=== PATIENT | female | born 1955 | race Caucasian/White ===

== ENCOUNTER → 2018-01-31 09:29 | Outpatient (CLI) | payer OTHER, SELFPAY ==
[2018-01-31 12:39] LABS: Cholesterol 211 mg/dL (200); High Density Lipoprotein 58 mg/dL; Thyroid Stim Hormone (TSH) 4.54 uIU/mL (0.358-3.74); Triglycerides 160 mg/dL; Very Low Density Lipoprotein 32 mg/dL (5-40)
== END ==
PROVIDERS: Family Provider Family Medicine; PCP Family Medicine; Visit Provider Family Medicine
DX: R53.83 Other fatigue (principal)
CPT/HCPCS: 36415; 80061; 84439; 84443

== ENCOUNTER → 2018-03-10 13:10 | Outpatient (CLI) | payer OTHER, SELFPAY | PROVIDERS: Family Provider Family Medicine; PCP Family Medicine; Visit Provider Family Medicine | DX: I65.29 Occlusion and stenosis of unspecified carotid artery (principal) | CPT/HCPCS: 93880 ==

== ENCOUNTER → 2018-03-17 08:52 | Outpatient (CLI) | payer OTHER, SELFPAY | PROVIDERS: Family Provider Family Medicine; PCP Family Medicine; Visit Provider Surgery | DX: E04.1 Nontoxic single thyroid nodule (principal) | CPT/HCPCS: 76536 ==

== ENCOUNTER → 2018-05-05 09:46 | Outpatient (CLI) | payer OTHER, SELFPAY ==
[2018-05-05 12:37] LABS: Free T3 2.8 pg/mL (2.18-3.98); T4 Total, Thyroxin 9.7 ug/dL (4.8-13.9); Thyroid Stim Hormone (TSH) 3.09 uIU/mL (0.358-3.74)
[2018-05-05 12:45] LABS: Rubella IgG 151.4 IU/mL
[2018-05-06 15:29] LABS: Rubeola IgG Ab > 300.0 AU/mL (Immune >29.9)
== END ==
PROVIDERS: Family Provider Family Medicine; PCP Family Medicine; Visit Provider Family Medicine
DX: R79.89 Other specified abnormal findings of blood chemistry (principal); Z23 Encounter for immunization
CPT/HCPCS: 36415; 84436; 84443; 84481; 86735; 86762; 86765

== ENCOUNTER → 2018-12-13 16:32 | Outpatient (CLI) | payer MEDICARE, SELFPAY ==
--- NOTE | 2018-12-13 16:43 | RAD_ITS ---
STUDY: X-RAY - LEFT KNEE REASON FOR EXAM: Female, 63 years old. Knee pain TECHNIQUE: 4 view(s) of the knee. COMPARISON: None. FINDINGS: There is no evidence of fracture or dislocation. Mild tricompartmental degenerative changes are present. Chondrocalcinosis is present. A suprapatellar effusion is present. Hypertrophic changes are present at the superior patella. There is a horizontal lucency through the medial tibial spine. There are no radiodense foreign bodies. RAD/Knee 4 or More Views IMPRESSION: No displaced fracture or dislocation. Degenerative changes described above. Horizontal lucency through the medial tibial spine may represent chronic tibial spine fracture of indeterminate age, or related to chronic degenerative change. Electronically Signed: Delonte Oakley, at 17:06 EDT Tel , Service support ,
--- NOTE | 2018-12-13 16:44 | RAD_ITS ---
STUDY: X-RAY - RIGHT KNEE REASON FOR EXAM: Female, 63 years old. Knee pain TECHNIQUE: 4 view(s) of the knee. COMPARISON: None. FINDINGS: There is no evidence of fracture or dislocation. Mild tricompartmental degenerative changes are present. Chondrocalcinosis is present. There is a small suprapatellar effusion. There are no radiodense foreign bodies. RAD/Knee 4 or More Views IMPRESSION: No fracture or dislocation. Degenerative changes described above. Electronically Signed: Delonte Oakley, at 17:19 EDT Tel , Service support ,
== END ==
PROVIDERS: Family Provider Family Medicine; PCP Family Medicine; Referring Provider Family Medicine; Visit Provider Family Medicine
DX: M25.569 Pain in unspecified knee (principal)
CPT/HCPCS: 73564

== ENCOUNTER → 2018-12-29 17:35 | Outpatient (CLI) | payer MEDICARE, SELFPAY ==
[2018-12-21 14:23] VITALS: BMI 24.3
--- NOTE | 2018-12-29 17:37 | MRI_ITS ---
HISTORY:Left knee popping out of place c/o pain laterally x 3 weeks, no known injury MRI EXAMINATION OF THELeft KNEE COMPARISON: Right aggressive left knee obtained on December 13, 2018 TECHNIQUE: Coronal proton density, fat-suppressed T2 and thin section ACL coronal T2, sagittal proton density, fat-suppressed T2 and axial fat-suppressed T2-weighted images # of images including paperwork:192 FINDINGS: Bones: There is no evidence of acute fracture or dislocation. No significant marrow edema. Ligaments and tendons: Anterior and posterior cruciate ligaments are intact. The iliotibial band, lateral collateral ligament, biceps femoris tendon, medial collateral ligament, and popliteus tendon are intact Extensor mechanism: The quadriceps tendon and the patellar tendon are intact. There is not the fight at the insertion of the quadriceps tendon on the patella. Medial and lateral retinaculum are intact. Knee joint: Small joint effusion. There is minimal edema that is seen at the suprapatellar fat pad. There is also a small popliteal cyst as well as fluid within the semimembranosus tibial collateral ligament bursa Medial compartment: No evidence of a meniscal tear. There is near full-thickness fissuring seen at the weightbearing portion medial femoral condyle seen and coronal image 13 series 6 with thinning of the lateral aspect of the medial femoral condylar articular cartilage Lateral compartment: There is a horizontal tear involving the middle one third of the lateral meniscus. This extends to the inferior articular surface poorly visualized on image 12 series 6. There is also seen on image 13 series 6. No full-thickness articular cartilage loss is seen at the lateral compartment and the knee. There is however a corticated loose body that is seen adjacent to the anterior lateral femoral condyle seen best on image 17 series 6. This measures approximately 5.8 mm. This is also seen on image 9 series 7. Also on image 17 series 5. Patellofemoral articulation: There is minimal subchondral edema seen at the far lateral patella central portion. Thinning of the articular cartilage of the patella but no full-thickness loss. No articular cartilage loss in the trochlea MRI/Lower Ext Joint Only (Routine) IMPRESSION: The anterior and posterior cruciate limits her intact There is a small loose body seen at the anterior lateral joint space medial aspect Edema of the suprapatellar fat pad Minimal edema seen at the far lateral central patella Thinning of the patellar tickler cartilage but no full-thickness loss There is fissuring the weightbearing portion of the medial femoral condyle Horizontal tear of the middle one third of the lateral meniscus Popliteal cyst as well as fluid within the semimembranosus tibial collateral ligament bursa Small joint effusion at 2154 Reported and signed by: Shania Mooney DO Electronically Signed: Shania Mooney DO at 21:53 EDT Tel , Service support ,
== END ==
PROVIDERS: Family Provider Family Medicine; PCP Family Medicine; Referring Provider Orthopaedic Surgery; Visit Provider Orthopaedic Surgery
DX: M17.12 Unilateral primary osteoarthritis, left knee (principal); M25.562 Pain in left knee
CPT/HCPCS: 73721

== ENCOUNTER → 2019-01-21 09:08 | Outpatient (CLI) | payer MEDICARE, SELFPAY ==
[2019-01-03 10:09] VITALS: BMI 24.3
[2019-01-21 10:54] LABS: Anion Gap 6 (5-15); BUN 27 mg/dL (7-18); Calcium,Total 8.5 mg/dL (8.5-10.1); Chloride 107 mmol/L (98-107); Cholesterol 237 mg/dL (200); Creatinine, Serum 0.84 mg/dL (0.55-1.02); EST Glomerular Filtration Rate 72 mL/min (>60); Est Glom Filt Rate - Afr Amer 87 mL/min (>60); Glucose 90 mg/dL (74-106); High Density Lipoprotein 61 mg/dL; Microalbumin,Random Urine 9.5 mg/L (NO RANGE EST.); Microalbumin:Creatinine Ratio 5.7 mg/g CRE (<30 mg/g CRE); Potassium 4.2 mmol/L (3.5-5.1); Sodium Level 143 mmol/L (136-145); Triglycerides 154 mg/dL; Very Low Density Lipoprotein 31 mg/dL (5-40)
== END ==
PROVIDERS: Family Provider Family Medicine; PCP Family Medicine; Referring Provider Family Medicine; Visit Provider Family Medicine
DX: I10 Essential (primary) hypertension (principal)
CPT/HCPCS: 36415; 80048; 80061; 82043; 82570; 84443

== ENCOUNTER 2019-02-01 09:35 | Day surgery (SDC) | payer MEDICARE, SELFPAY ==
[2019-01-03 10:09] VITALS: BMI 24.3
--- NOTE | 2019-01-03 12:54 | HP_ITS ---
I have re-examined the patient. There are no clinical changes since date of exam. Intake Vital Signs 01/03/19 Body Mass Index (BMI) 24.3 01/02/19 Body Mass Index (BMI) 24.3 Intake Visit Reasons: L. KNEE Chief Complaint: Diverticulitis Allergies No Known Allergies Allergy (Verified 03/18/18 14:27) [facility] Medical History (Updated 03/18/18 @ 14:34 by Jacob Maya MD) Multiple thyroid nodules (Acute) Dehydration (Acute) HTN (hypertension) (Chronic) Hyponatremia (Acute) Diverticulitis (Acute) Surgical History (Updated 03/18/18 @ 14:19 by Meaghan Pedraza) S/P eye surgery (Acute) H/O foot surgery (Acute) S/P breast biopsy (Acute) S/P tonsillectomy (Acute) Family History (Updated 03/18/18 @ 14:21 by Meaghan Pedraza) Mother Hypertension CAD (coronary artery disease) Thyroid disorder Father Heart disease Hypertension Social History (Updated 01/03/19 @ 12:54 by TIFFANY Gallardo) Smoking Status: Current every day smoker alcohol intake: current alcohol intake frequency: 0-2 drinks per day HPI L. KNEE: Surgical H&P: Yes Details: Parts of this documentation were recorded by a scribe, this documentation accurately reflects the service provided and the decisions made by me, TIFFANY Gallardo 01/03/19 1007. MATT TORRES is a 63 year old F here today for F/U after having Left knee MRI completed. Patient states her pain has not changed. Does have an increase in stiffness. Patient is having lateral sided knee pain. Patient denies any injections of the knee. ROS Const Reports system reviewed and no additional complaints, except as docu Eyes Reports system reviewed and no additional complaints, except as docu ENT Reports system reviewed and no additional complaints, except as docu Card Reports system reviewed and no additional complaints, except as docu Resp Reports system reviewed and no additional complaints, except as docu GI Reports system reviewed and no additional complaints, except as docu Musc Reports system reviewed and no additional complaints, except as docu, Reports as per HPI Skin/Breast Reports system reviewed and no additional complaints, except as docu Neuro Yes system reviewed and no additional complaints, except as docu Psych Reports system reviewed and no additional complaints, except as docu Endo Reports system reviewed and no additional complaints, except as docu Zak/Lymph Reports system reviewed and no additional complaints, except as docu Aller/Immun Reports system reviewed and no additional complaints, except as docu Ortho Exam Left Knee Skin/Wound: No ecchymosis, No erythema, No swelling Contralateral Normal: Yes Homans Sign: No Knee ROM: Yes ROM-Extension -20 to 0, Yes ROM-Flexion 0-140 Examination: Yes Lat jt line tenderness, Yes Brent's Test KNEE: Patient has no acute abnormalities on inspection. She has no generalized or localized swelling. She has no ecchymosis/bruising, erythema, or other skin changes. Assessment & Plan Problems 1. Acute lateral meniscus tear of left knee, initial encounter S83.282A Plan Patient presents to the office today to review MRI of left knee. Patient has continued to have locking of the knee and occasional instability/giving out. She does not have any swelling or other skin changes. We did review patient's MRI findings which indicates she does have a horizontal tear of the lateral meniscus. We discussed that this very well could be shifting/even flipping causing her to have a locking sensation of the knee. At this time we did discuss options for the knee which include doing nothing, injections, physical therapy, and/or surgical intervention. Patient is not keen on having injections and would really like to have this repaired due to the symptoms she is having. 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 I therefore reviewed this with our surgeon in office today Dr. Max who we did see the patient and answer any questions regarding the MRI and surgical procedure. Procedure was explained to patient at the same time we also explained cannot have an exact plan until we directly visualize the meniscus and the tear involved. We explained risks and benefits of the procedure as well as the other options patient is aware and understands these risks. Consent was signed in office today. Patient was given surgical cleansed to use the night before the morning of. She will be contacted by surgery for preanesthesia testing and will be notified the day before her surgery of her time. Patient has no other questions at this time. She can notify the office if any arise. This note was generated with [employer] software. It may contain incorrect words, spelling, and punctuation that were not noted in checking the note before signing. Coding Level of Care Code Off vis,est,level 2 Diagnoses Acute lateral meniscus tear of left knee, initial encounter S83.282A ??Encounter type: initial encounter 01/03/19 1254 <Electronically signed by Felipe ALLEN> Date _ Felipe ALLEN
[2019-02-01 09:55] VITALS: BP 148/70; PULSE 60; RESP 16; TEMP 36.7; O2SAT 100; BMI 24.8
[2019-02-01] MEDS: Cefazolin 2 GM in 0.9% Normal Saline 100 ML IV (10:33)
--- NOTE | 2019-02-01 10:39 | PCM.DC.ORTHO ---
Discharge Diet: No Restrictions - remove dressings in 4 days and apply bandaids to incision sites, may get incision wet at that time; wbat left leg, call with concerns, follow up in 2 weeks, will start PT in 2 weeks Discharge Activity: May Not Drive May shower in (days): 1 Ice area for (Minutes): 20 - Every hour while awake. Weight Bearing Status: Weight bearing as tolerated Keep extremity elevated above heart level: Operative Extremity Call your doctor if your incision/area has: Continuous Slow Oozing, Sudden Increased Bleeding, Increased Pain/ Swelling, Increased Redness, Foul Smelling Discharge Call your doctor if you observe: Fever of 101 or Higher, Coldness, Increased Pain, Numbness or Tingling, Change in Color, Calf discomfort Allergies/Adverse Reactions: Allergies No Known Allergies Allergy (Verified 01/31/19 13:21) Medications to take at Discharge Metoprolol(XL)Succ [Toprol Xl (Beta Mervat)] 25 mg PO DAILY 01/11/15 amlodipine 5 mg tablet 5 mg PO DAILY 03/18/18 multivitamin tablet 1 tab PO DAILY 03/18/18 timolol 0.5 % eye drops 1 drp OPHTHALMIC BID 03/18/18 Calcium Carbonate [Calcium] 600 mg PO DAILY 01/31/19 Levothyroxine Sodium [Synthroid] 50 mcg PO DAILY 01/31/19 Hydrocodone Bitart/Apap 5-325 [[place] 5MG-325MG] 1 - 2 tablet PO Q6H PRN PRN 5 Days #40 tablet 02/01/19 The following prescriptions were given: Hydrocodone Bitart/Apap 5-325 [[place] 5MG-325MG] 1 - 2 tablet PO Q6H PRN PRN 5 Days #40 tablet PRN Reason: Pain Transmission Status: Sent to [facility] Primary Care Physician: Bandar Chilel MD [Primary Care Provider] - Test Results: Test results from this visit will be discussed in further detail at your follow-up appointment, if applicable. Please Follow Up With: Lolis Max, - [phone]
--- NOTE | 2019-02-01 10:40 | PCM.OPRPT ---
Report of Operation Date of Procedure: 02/01/19 Pre-Operative Diagnosis: left knee oa, medial and lateral men tears Post-Operative Diagnosis: same Surgery/Procedure Performed:: salk, pmm, plm fur nailer: Felipe Espana Type of Anesthesia:: General Anesthesiologist: Nils Mayfield Drains: tt-28min Fluids Replaced: 600ml lr Description of Procedure: Preop note Patient is a 63-year-old female with continued left knee pain after conservative treatment failed MRI confirms medial lateral meniscus tears as well as arthritis the locking and instability of the knee is with most bothersome the patient. Risk benefits and alternatives surgery discussed the patient. Risks including but not limited to blood loss blood, blood clot, infection, neurovascular injury, failure procedure, loss of life and loss of limb. Risk for increasing arthritis. Patient is aware and would like to proceed with left knee arthroscopy repair as indicated. Please note the patient did not want anything repair today as she does not want to be on crutches for 6 weeks and we will do a meniscectomy. Operative note Patient seen and examined preop holding area. Left knee was marked. Patient brought to the operating placed supine on the operating table. Sign, anesthesia, antibiotics were administered. The left leg was prepped and draped usual sterile fashion with a tourniquet around her upper thigh. All bony promises well-padded SCDs placed on her contralateral limb. We then marked at her port placement for anterolateral and anteromedial portal placement. We then elevated the leg assembly of the leg and triggers rates her pressure 250 torr. We then created an anterior lateral portal under direct visualization after timeout was performed. Began with the patellofemoral joint which was intact there is some thinning but there is no unstable pieces. Then moved to the medial joint line there is a we then created a medial portal under direct visualization. There is a 1 x 0.6 cm loose body in the anterior lateral aspect of the joint just lateral to the ACL insertion. This was removed with a hemostat please note that we did enlarge the incision just slightly to remove it as it was about a centimeter large to remove it and patient was taken of the loose body was sent for pathology for further evaluation. Probed the medial meniscus which was unstable at the root. We then resected the unstable root tear with a combination of shaver and a basket. Please note that the root itself was intact it is more of the superior surface of the root. She also has some looks like an deposition of either steroid injections or pseudogout calcium deposits within the meniscus as well at the posterior horn specifically. We then susan did she also had also a radial body tear at the mid side of the mid body of the medial meniscus. This was also debrided back gently with a basket shaver to stable rim probe was then reinserted to ensure the stable rim remaining and there was a stable remnant of the medial meniscus. She had grade 3 changes about 2 x 3 of the medial femoral condyle and thinning of the medial tibial plateau as well. The ACL and PCL are present present within the notch on initial inspection however we want to figure for we are able to see that the ACL was was loose and there is a piece that was detached from the mid femoral attachment. This was gently shaved with a shaver. The lateral meniscus is also unstable there is a mid body tear that extended to the radial component. This was resected back with accommodation of a basket and shaver and then a probe was reinserted to ensure that we had good stable remnant lateral meniscus which we did have. We resected as little as possible to ensure that she has much cushion as possible she also had grade 3 irritated the lateral tibial plateau and lateral femoral condyle. We then irrigated the knee with copious amounts of sterile saline. The portals were closed with interrupted nylon stitches sterile dressings were applied tourniquet was deflated for a total working time 20 minutes. Patient tolerated procedure well no comp occasions transferred to recovery room in stable condition. Postoperative Weight-bear as tolerated left leg Follow-up in 2 weeks Pharmacy has prescriptions as Call with increased pain numbness tingling further issues arises We will discuss pictures in the office in 2 weeks This note was generated with [employer] software. It may contain incorrect words, spelling, and punctuation that were not noted in checking the note before signing.
[2019-02-01] MEDS: Epinephrine (1 mg/ml) 1 MG/ML VIAL (11:25)
[2019-02-01] MEDS: Mupirocin Ointment 22gm Tube 1 APPLIC (11:25)
[2019-02-01] MEDS: Bupiv/Epi 0.25% 30 ML Vial (11:26)
--- NOTE | 2019-02-01 11:35 | TISS_PTH ---
PATIENT: MATT TORRES LOC: [facility] [place] U#:[id number] AGE/SX: 63/F ROOM: RE02/01/[address]: Dr. Lolis Max DO : 1955 BED: DIS: 02/01/2019 SPEC #: [id number] RECD: 02/01/19 13:34 STATUS: CAROLINE FRANCISCO #: [id number] SONI: 02/01/19 11:[address]: Lolis Max DEPT: SURGICAL PATHOLOGY RECD BY: Justin Gutierrez ENTERED: 02/01/19 13:46 SP TYPE: Tissue Bx MARITA DR: Dr. Bandar Chilel MD Tissues: Left knee Procedures: Surgery Specimen Level IV HEADER OPERATION: Arthroscopy, knee, lateral meniscus meniscectomy PRE-OP DIAGNOSIS: Acute lateral meniscus tear of left knee TISSUE SUBMITTED: Left knee loose body MICROSCOPIC DIAGNOSIS Loose body of left knee, removal: Unremarkable fragment of [place] cartilaginous tissue consistent with loose body. AM:priyanka 02/06/19 MICROSCOPIC DESCRIPTION Slides are reviewed. GROSS DESCRIPTION Received is one container designated left knee loose body. The specimen consists of a piece of bone measuring 1 x 0.7 x 0.5 cm. The entire specimen is submitted in one cassette after decalcification. / MÓNICA:priyanka 02/01/19 TC:5 CPT: 97606, [id number]
[2019-02-01 11:45] VITALS: BP 124/69; BP 148/70; PULSE 57; RESP 18; TEMP 36.2; O2SAT 94
[2019-02-01 12:00] VITALS: BP 136/72; BP 148/70; PULSE 60; RESP 16; O2SAT 100
[2019-02-01 12:15] VITALS: BP 127/71; BP 148/70; PULSE 58; RESP 16; O2SAT 95
[2019-02-01 12:30] VITALS: BP 137/82; BP 148/70; PULSE 63; RESP 16; TEMP 36.1; O2SAT 98
[2019-02-01 13:23] VITALS: BP 123/67; BP 148/70; PULSE 56; RESP 16; TEMP 36.2; O2SAT 96
== END 2019-02-01 13:24 | disposition home or self-care (01) ==
LOC: SDC 09:40 → AC 09:42
PROVIDERS: Family Provider Family Medicine; PCP Family Medicine; Referring Provider Orthopaedic Surgery; Visit Provider Orthopaedic Surgery
PROC: (CPT 29870; principal; 2019-02-01 11:15)
DX: M23.42 Loose body in knee, left knee (principal); I10 Essential (primary) hypertension; M17.12 Unilateral primary osteoarthritis, left knee; E03.9 Hypothyroidism, unspecified; F17.200 Nicotine dependence, unspecified, uncomplicated
CPT/HCPCS: 01400; 29880; 88305; J7120; J2405

== ENCOUNTER → 2019-02-16 09:51 | Outpatient (CLI) | payer MEDICARE, OTHER, SELFPAY ==
[2019-02-16 08:07] VITALS: BMI 24.8
--- NOTE | 2019-02-16 09:53 | VDLE_ITS ---
Reason For Study: Pain RIGHT LEFT CFV is compressible, spontaneous, phasic, GSV is normal. competent and demonstrates normal CFV is compressible, spontaneous, phasic, augmentation. competent, and demonstrates normal Procedure augmentation. Exam performed in department. FV is compressible, spontaneous, phasic, A preliminary report was called and/or faxed competent and demonstrates normal to Winter. augmentation. POP V is compressible, spontaneous, phasic, competent and demonstrates normal augmentation. T/P Trunk is compressible. PTV is compressible. LT PerV is compressible. Interpretation Summary There is no evidence of left lower extremity deep vein thrombosis. Left great saphenous vein appears patent and compressible segmentally. Patent and compressible right common femoral vein Ordering Physician: Lolis Max Referring Physician: Bandar Chilel MD Performed By: Jodee Avila RVT
== END ==
PROVIDERS: Family Provider Family Medicine; PCP Family Medicine; Referring Provider Orthopaedic Surgery; Visit Provider Orthopaedic Surgery
DX: M79.662 Pain in left lower leg (principal); Z98.890 Other specified postprocedural states
CPT/HCPCS: 93971

== ENCOUNTER → 2019-04-28 10:02 | Outpatient (CLI) | payer MEDICARE, BC, SELFPAY ==
[2019-02-16 08:07] VITALS: BMI 24.8
[2019-03-17 09:28] VITALS: BMI 24.8
--- NOTE | 2019-04-28 10:09 | US_ITS ---
HISTORY: NODULES COMPARISON: 03/17/2018 TECHNIQUE: Grayscale and color Doppler sonography of the thyroid gland. FINDINGS: RIGHT LOBE: 4.7 x 1.3 x 1.6 cm LEFT LOBE: 4.3 x 1.3 x 1.4 cm ISTHMUS: 2 mm Hypoechoic, smoothly marginated 5 x 3 x 4 mm right thyroid lobe nodule, not definitely seen previously. Small right thyroid lobe nodule on the previous study no longer evident. Hypoechoic 8 x 7 x 6 mm smoothly marginated left thyroid lobe nodule, previously 8 x 7 x 6 mm. 3 x 4 mm left thyroid lobe cyst appears unchanged. Predominantly hyperechoic 8 x 5 x 6 mm left thyroid lobe nodule, previously 9 x 5 x 7 mm. Heterogeneously hypoechoic 6 x 6 x 6 mm left thyroid lobe nodule, previously 7 x 4 x 5 mm. US/Thyroid IMPRESSION: 1. New small right thyroid lobe nodule measuring 5 mm. 2. No significant interval change in left thyroid lobe nodules. at 2327 Reported and signed by: Marlee Shaffer MD Electronically Signed: Marlee Shaffer MD at 23:27 EDT Tel , Service support ,
== END ==
PROVIDERS: Family Provider Family Medicine; PCP Family Medicine; Referring Provider Surgery; Visit Provider Surgery
DX: E04.2 Nontoxic multinodular goiter (principal)
CPT/HCPCS: 76536

== ENCOUNTER → 2019-08-03 08:12 | Outpatient (CLI) | payer MEDICARE, BC, SELFPAY ==
[2019-05-12 13:03] VITALS: BMI 24.8
[2019-08-03 10:13] LABS: Cholesterol 219 mg/dL (200); Free T3 2.9 pg/mL (2.18-3.98); High Density Lipoprotein 61 mg/dL; Thyroid Stim Hormone (TSH) 2.78 uIU/mL (0.358-3.74); Triglycerides 112 mg/dL; Very Low Density Lipoprotein 22 mg/dL (5-40)
== END ==
LOC: LAB.FUTURE 08:15 → MTLAB 08:21
PROVIDERS: Family Provider Family Medicine; PCP Family Medicine; Referring Provider Family Medicine; Visit Provider Family Medicine
DX: E03.9 Hypothyroidism, unspecified (principal); E78.00 Pure hypercholesterolemia, unspecified
CPT/HCPCS: 36415; 80061; 84439; 84443; 84481

== ENCOUNTER → 2019-11-24 09:13 | Outpatient (CLI) | payer MEDICARE, BC, SELFPAY ==
[2019-11-16 10:04] VITALS: BMI 24.8
--- NOTE | 2019-11-24 09:14 | RAD_ITS ---
STUDY: X-RAY - RIGHT KNEE REASON FOR EXAM: Pain. TECHNIQUE: 4 view(s) of the knee. COMPARISON: Radiographs 12/13/2018. FINDINGS: Normal visualized distal femur. Normal visualized proximal tibia and fibula. Normal proximal tibiofibular articulation. Normal medial femorotibial compartment. There are small marginal osteophytes and mild joint space narrowing of the lateral femorotibial compartment similar to the prior study. Normal patellofemoral articulation. There is chondrocalcinosis. There is patellar enthesopathy. RAD/Knee 4 or More Views IMPRESSION: Mild arthrosis of the lateral femorotibial compartment. Chondrocalcinosis. Electronically Signed: Yeison Tellez MD at 9:37 EDT Tel , Service support ,
== END ==
PROVIDERS: PCP Family Medicine; Referring Provider Orthopaedic Surgery; Visit Provider Orthopaedic Surgery
DX: S76.311A Strain of muscle, fascia and tendon of the posterior muscle group at thigh level, right thigh, initial encounter (principal); M70.51 Other bursitis of knee, right knee
CPT/HCPCS: 73564

== ENCOUNTER 2020-01-03 11:00 | Outpatient (RCR) | payer MEDICARE, BC, SELFPAY ==
[2019-11-16 10:04] VITALS: BMI 24.8
--- NOTE | 2019-11-27 19:25 | HP.PTEVAL_ITS ---
Patient's Visit Information MATT TORRES is a 64 year old F referred to Physical Therapy by Dr. Lolis Max DO with a diagnosis of pes bursitis Right knee pain,hamstrings strain. Date of Evaluation: 11/27/19 Physical Therapist: Haroon Haque, PT, Cert MDT, OCS - Visit Plan Frequency: 2x /Week Duration: 4 Weeks Plan: PT INTERVENTIONS FLEXABLITY IT BANND ,ROM KNEE,PRES QUADS/HAMS/HIP,STICK I TBAND. MODALITIES PRN - Subjective This 64 y/o female presents to physical therapy with right knee pain. Patient has h/o left knee arthrospic menisectomy 2019. Patient potential injuried playing [email or web address]. Patient had epsiode locked. Pain located grossly knee,occassionallly affects entire leg. Patient seen DR Rodriguez did x-rays OA.Aggravating factors stairs,squatting,elevation from chair,climbing factors ,shoveling,getting up from floor. Alleviating factors aleve.Symptoms worse with activity . Rest no pain. Denies parathesia/tingling . Patient sleeping okay at night. Patient pain affects ability to perfporm ADL'S ,housework tasks and job demnads. Patient symptoms affects QOL. SOCIAL: single. VOCATION: retired teacher - Pain Right Knee Pain Intensity (Out of 10): 5 Pain Intensity Range: 10 Comment: movement - Objective POSTURE: mild foward posture ,mild valgus. GAIT: reciprocal pattern. PALAPTION:IT BAND DISTAL. NEURO: intact. AROM: 0-120 supine knee flexion right,0-130 supine knee flexion left. MMT: quads/hams 4/5,hip flexion 4-/5,hip abd 4-/5,ankle 4/5. FLEXABLITY: hams WFL,min tight,. PROPRIOCEPTION: intact. STAIRS: alternating pain descending. + Pain with squatting - Special Tests R Knee Brent - Meniscus: Positive R Knee Shimon - ACL: Negative R Knee Anterior Drawer - ACL: Negative R Knee Posterior Drawer - PCL: Negative R Knee Posterior Sag - PCL: Negative R Knee Valgus - MCL: Negative R Knee Varus - LCL: Negative R Knee Patellar Grind - PFS: Positive - Goals Goal 1:: Patient to be Indepndant with HEP Goal Time Frame: 4-6 Weeks Goal 2:: Patient to decrease pain by 50% or > to improve function Goal Time Frame: 4-6 Weeks Goal 3:: Patient to improve right knee supine flexion 130 degrees to improve stairs Goal Time Frame: 4-6 Weeks Goal 4:: Patient to improve LFES score by 5 points to improve function and QOL. Goal Time Frame: 4-6 Weeks Goal 5:: Patient ability to perform ADLS', stairs ,and housework and return sports activity with min limitations Goal Time Frame: 4-6 Weeks - Rehabilitation Potential Physical Therapy Diagnosis: This patient strained right knee with possible playing pickle ball thus developed knee pain affects functional mobility witf functiona activlity stairs,elevation from chair ,tenderness I -Tband ,ROM Loss with pain. Rehabilitation Potential: Good - Anticipated Interventions Patient/Client Instruction: Educate patient on: Condition, Plan of Care For the Purpose of:: To decrease pain, To increase ROM, To improve muscle performance and motor function, To improve ability to perform ADL's, To increase tolerance to activity/condition/position, To improve ability of physical actions for home/community/work/leisure, To improve health of tissue, To decrease soft tissue restriction, To increase flexibility/ROM, To improve ability to perform tasks related to life management Therapeutic Exercise to Include: Strength training, Balance training, Flexibilty training, Active ROM Comment: QUADS/HAMS /HIP For the Purpose of:: To decrease pain, To increase ROM, To improve muscle performance and motor function, To improve ability to perform ADL's, To increase tolerance to activity/condition/position, To improve ability of physical actions for home/community/work/leisure, To improve health of tissue, To decrease soft tissue restriction, To increase flexibility/ROM, To improve ability to perform tasks related to life management Manual Therapy Techniques to Include: Soft tissue mobilization Comment: STICK I T BAND For the Purpose of:: To decrease pain, To increase ROM, To improve nutrient delivery to tissue, To increase oxygenation perfusion, To improve health of tissue, To decrease soft tissue restriction TENS: Yes IF ES: Yes Cryotherapy (ice pack, ice massage): Yes Thermo therapy (hot pack): Yes Ultrasound (thermal/non thermal): Yes For the Purpose of:: To decrease pain, To increase ROM, To improve nutrient delivery to tissue, To increase oxygenation perfusion, To improve health of tissue, To decrease soft tissue restriction Thank you for the opportunity to evaluate your patient. For Medicare and Medicare HMO plans, please review the plan of care and approve it. It will need to be FAXED BACK to us at [phone] for Medicare purposes. For Medicare only, by signing this I certify the plan of care. Please let me know if there are questions or concerns regarding this plan of care. Physician Signature: Date:
--- NOTE | 2020-01-03 12:00 | HP.PTDCSUM ---
It has been my pleasure to treat MATT TORRES referred by Dr. Lolis Max DO, with the diagnosis of pes bursitis Right knee pain,hamstrings strain for a total of 8 visit(s). Discharge Date: 01/03/20 Please see the following information for a summary of their discharge status. Subjective: Doing well with tx ,.ROM ,NO PAIN. Able to do stairs alteranting Right Knee Pain Intensity (Out of 10): 0 % Improvement: 90 Objective/Function: POSTURE: mild foward posture. GAIT: reciprocal pattern. STAIRS: alternating steps. AROM: 0-130 degrees. MMT: QUADS/HAMS 4/5,HIP 4/5. I T BAND TENDER Goal 1:: Patient to be Indepndant with HEP Goal Progress: Goal Met Goal 2:: Patient to decrease pain by 50% or > to improve function Goal Progress: Goal Met Goal 3:: Patient to improve right knee supine flexion 130 degrees to improve stairs Goal Progress: Goal Met Goal 4:: Patient to improve LFES score by 5 points to improve function and QOL. Goal Progress: Goal Met Goal 5:: Patient ability to perform ADLS', stairs ,and housework and return sports activity with min limitations Goal Progress: Goal Met Plan: D/C TO HEP AND GYM PROGRAM Discharge Comments: HEP AND GTM PROGRAM If there are questions or concerns regarding this patient's physical therapy, please feel free to call me at [phone]. Thank you for the referral of this patient. Sincerely, Haroon Haque, PT, Cert MDT, OCS
== END 2020-01-03 19:00 | disposition home or self-care (01) ==
LOC: PT 11:00
PROVIDERS: PCP Family Medicine; Referring Provider Orthopaedic Surgery; Visit Provider Orthopaedic Surgery
DX: M70.51 Other bursitis of knee, right knee (principal); S76.311D Strain of muscle, fascia and tendon of the posterior muscle group at thigh level, right thigh, subsequent encounter
CPT/HCPCS: 97035; 97110; 97162

== ENCOUNTER → 2020-04-09 14:04 | Outpatient (CLI) | payer MEDICARE, BC, SELFPAY ==
[2019-11-16 10:04] VITALS: BMI 24.8
--- NOTE | 2020-04-09 14:04 | US_ITS ---
STUDY: THYROID ULTRASOUND REASON FOR EXAM: Female, 64 years old. GOITER TECHNIQUE: Ultrasound evaluation of the thyroid was performed with real-time and static quiroz-scale imaging. COMPARISON: Prior study of 04/28/2019 FINDINGS: RIGHT LOBE: The right lobe of the thyroid gland measures 4.7 x 1.6 x 1.4 cm. There is a heterogeneous echotexture. There is an upper pole cyst measuring 5 x 4 x 4 mm. This was not previously seen. LEFT LOBE: The left lobe of the thyroid gland measures 4.4 x 1.6 x 0.9 cm. There is a heterogeneous. There is an 8 x 6 x 5 mm hypoechoic vascular nodule, stable from the previous study. There is a 10 x 6 x 5 mm mixed echogenic nodule, previously measuring 8 x 7 x 6 mm. This is minimally increased in size in the interval. There is a 4 x 3 x 3 mm mixed echogenic hypoechoic nodule, previously measuring 6 x 6 x 6 mm. ISTHMUS: The isthmus measures 3 mm . The regional lymph nodes are normal. US/Thyroid IMPRESSION: Heterogeneously echogenic thyroid. Upper pole 5 x 4 x 4 mm right thyroid lobe cyst, not previously seen. A previously reported right thyroid lobe nodule was in this region, and the cyst possibly represents cystic degeneration. 3. Left thyroidal lobe nodules as detailed above. One of these is stable in the interval, one is minimally increased in size, and one has minimally decreased in size. Follow-up ultrasound in 6-12 months is recommended to assess for stability. Electronically Signed: Srinivas Monet MD at 23:57 EDT , Service support ,
== END ==
PROVIDERS: PCP Family Medicine; Referring Provider Surgery; Visit Provider Surgery
DX: E04.2 Nontoxic multinodular goiter (principal)
CPT/HCPCS: 76536

== ENCOUNTER → 2020-04-22 08:22 | Outpatient (CLI) | payer MEDICARE, BC, SELFPAY ==
[2019-11-16 10:04] VITALS: BMI 24.8
[2020-04-22 09:31] LABS: Microalbumin,Random Urine 8.7 mg/L (NO RANGE EST.); Microalbumin:Creatinine Ratio 6.2 mg/g CRE (<30 mg/g CRE)
[2020-04-22 10:01] LABS: ALB/GLOB Ratio 1.2 RATIO (0.9-2.4); AST(SGOT) 18 U/L (15-37); Alanine Aminotransfer ALT/SGPT 29 U/L (13-56); Albumin, Serum 3.7 g/dL (3.2-5.0); Alkaline Phosphatase 80 U/L (45-117); Anion Gap 2 (5-15); BUN 25 mg/dL (7-18); BUN/Creat Ratio 28.7 RATIO (10-20); Calcium,Total 8.5 mg/dL (8.5-10.1); Chloride 108 mmol/L (98-107); Cholesterol 206 mg/dL (200); Creatinine, Serum 0.87 mg/dL (0.55-1.02); EST Glomerular Filtration Rate 69 mL/min (>60); Est Glom Filt Rate - Afr Amer 84 mL/min (>60); Globulin 3.2 g/dL (2.2-4.2); Glucose 88 mg/dL (74-106); High Density Lipoprotein 64 mg/dL; Potassium 3.9 mmol/L (3.5-5.1); Protein, Total 6.9 g/dL (6.4-8.2); Sodium Level 141 mmol/L (136-145); Thyroid Stim Hormone (TSH) 4.67 uIU/mL (0.358-3.74); Triglycerides 121 mg/dL; Very Low Density Lipoprotein 24 mg/dL (5-40)
== END ==
PROVIDERS: PCP Family Medicine; Referring Provider Family Medicine; Visit Provider Family Medicine
DX: E03.9 Hypothyroidism, unspecified (principal); I10 Essential (primary) hypertension; E78.00 Pure hypercholesterolemia, unspecified
CPT/HCPCS: 36415; 80053; 80061; 82043; 82570; 84443

== ENCOUNTER → 2020-05-28 13:32 | Outpatient (CLI) | payer MEDICARE, BC, SELFPAY ==
[2020-04-26 07:51] VITALS: BMI 24.8
--- NOTE | 2020-05-28 13:33 | CT_ITS ---
STUDY: LOW DOSE CT LUNG CANCER SCREENING REASON FOR EXAM: Female, 64 years old. Tobacco abuse, smokes 1 cig/day x 40 years, 139lbs. Hx hypertension. RADIATION DOSAGE (If Supplied By Facility): CTDIvol = ( 2.01 ) mGy, DLP = ( 63.94 ) mGycm TECHNIQUE: No contrast was administered. Low dose technique was utilized (average mAS-38 and kVp 120). 1.25 mm axial source images with a slice interval of 1.25-mm were reconstructed in lung windows. 2.5 mm axial source images with a slice interval of 2.5-mm were reconstructed in lung windows. 5.0 mm axial source images with a slice interval of 5.0-mm were reconstructed in soft tissue windows. Nodule measured using lung windows on PACS and/or independent workstation with automated measurement of minimum and maximum diameter. Nodule measurement reported as average diameter rounded to the nearest whole number. Growth is defined as an increase ins size of greater than 1.5 mm. COMPARISON: None. NODULES: 2 mm noncalcified nodule is seen in the peripheral lateral aspect of the left upper lobe as seen on axial image #79. Emphysema: Mild degree of emphysematous changes. Scarring is seen in both lung apices. Aorta: Mild calcific plaques at the level of the aortic arch. Coronary arteries: Coronary artery calcification. Heart: Unremarkable. Pulmonary artery: Unremarkable. Mediastinal nodes: Small mediastinal lymph nodes. Other chest and abdominal findings: Degenerative changes of the thoracic spine. CT/Low Dose CT Lung Screening IMPRESSION: Lung-RADS category 2 - Continue annual screening with LDCT in 12 months. IMPORTANT NOTES FOR USE: ACR Lung-RADS Version 1.0 Assessment Categories Release Date: November 13, 2013 Category: Coded 0-4 bases on nodule(s) with highest degree of suspicion. Negative screen is defined as categories 1 and 2; a positive screen is defined as categories 3 and 4. Category 3 and 4A nodules that are unchanged on interval CT should be coded as category 2, and individuals returned to screening in 12 months. Category 4X: Category 3 or 4 nodules with additional imaging findings that increase the suspicion of lung cancer, such as spiculation, GGN that doubles in size in 1 year, enlarged lymph notes, etc. Category Modifiers: S (significant finding unrelated to lung cancer) and C (prior history of treated lung cancer) may be added to the 0-4 Lung-RADS Electronically Signed: Jemal Pack, at 14:09 EST , Service support ,
== END ==
PROVIDERS: PCP Family Medicine; Referring Provider Family Medicine; Visit Provider Family Medicine
DX: Z12.2 Encounter for screening for malignant neoplasm of respiratory organs (principal); F17.210 Nicotine dependence, cigarettes, uncomplicated
CPT/HCPCS: G0297

== ENCOUNTER → 2021-12-01 | Outpatient (CLI) | payer MEDICARE, SELFPAY ==
--- NOTE | 2021-12-01 12:18 | STRESSREP ---
Stress Test Report Excess sinus stress test. 66-year-old lady with a history of chest pain. Resting EKG demonstrates normal sinus rhythm with a rate of 53 bpm normal intervals are noted resting blood pressure is 124/86 mmHg. The patient exercised according to regular Kenrick protocol for total duration of 7 minutes. Patient completed 1 minute into stage III of the Kenrick protocol. The maximum heart rate attained 153 bpm which was 100% of max impact at heart rate the maximum workload was 10.1 metabolic equivalents. At rest there were no ST or T wave changes noted to suggest ischemia at peak exercise there was approximately 1.3 to 1.[address] depression noted in leads II, III and aVF and V6. The above was suggestive but not diagnostic of ischemia. In the immediate post exercise. The changes became more upsloping. No clinical angina was noted. The peak blood pressure was 142/80 mmHg. No chest pain was noted the test was terminated due to mild to moderate shortness of breath. Conclusion: Probably negative exercise stress test noted at a high workload with mild EKG changes suggestive but not diagnostic of ischemia.
== END | disposition home or self-care (01) ==
PROVIDERS: PCP Family Medicine; Referring Provider Family Medicine; Visit Provider Family Medicine
DX: R07.89 Other chest pain (principal)
CPT/HCPCS: 93017

== ENCOUNTER → 2022-02-06 | Outpatient (CLI) | payer MEDICARE, SELFPAY ==
--- NOTE | 2022-02-06 15:08 | RAD_ITS ---
EXAM: XR CHEST, 2 VIEWS CLINICAL INDICATION: sob TECHNIQUE: Frontal and lateral views of the chest. This report was created using [employer] report generation technology. COMPARISON: None. FINDINGS: LUNGS AND PLEURAL SPACES: Unremarkable. No consolidation or edema. No pneumothorax. No effusion. HEART: Unremarkable. Cardiac silhouette not enlarged. MEDIASTINUM: Central airways and mediastinal contour are unremarkable. BONES/JOINTS: Unremarkable. SOFT TISSUES: Unremarkable. RAD/Chest PA and Lateral IMPRESSION: No radiographic evidence of acute cardiopulmonary disease. Electronically Signed: Parish Oscar MD at 0:26 EDT ,
[2022-02-06 15:53] LABS: Absolute Neutrophil Count 3.8 X10^3/uL (2.0-7.7); Basophil# 0.02 X10^3/uL; Basophil% 0.3 % (0-1); Eosinophil# 0.15 X10^3/uL; Eosinophils% 2.4 % (0-5); Hematocrit 40.9 % (37-47); Hemoglobin 13.6 g/dL (12.0-15.0); Lymphocyte % 27.4 % (19-41); Mean Corp Hgb Conc 33.3 g/dL (32-36); Mean Corpuscular Hgb 31.2 pg (27.0-32.0); Mean Corpuscular Volume 93.8 fL (81-99); Monocyte# 0.54 X10^3/uL; Monocyte% 8.7 % (0-10); NRBC Flagged by Analyzer 0 % (0-5); Neutrophil # 3.78 X10^3/uL (2.7-7.7); Platelet Count 230 K/mm3 (150-450); RBC Distribution Width CV 13.3 % (11.6-14.6); RBC Distribution Width SD 45.7 fl (35.1-43.9); Red Blood Count 4.36 M/mm3 (4.2-5.4); White Blood Count 6.2 K/mm3 (4.4-11.0)
[2022-02-06 16:31] LABS: Anion Gap 6 (5-15); BUN 24 mg/dL (7-18); BUN/Creat Ratio 28.7 RATIO (10-20); Calcium,Total 9.3 mg/dL (8.5-10.1); Chloride 103 mmol/L (98-107); Creatinine, Serum 0.84 mg/dL (0.55-1.02); EST Glomerular Filtration Rate 72 mL/min (>60); Est Glom Filt Rate - Afr Amer 87 mL/min (>60); Glucose 102 mg/dL (74-106); Sodium Level 140 mmol/L (136-145)
== END | disposition home or self-care (01) ==
LOC: RAD 15:02
PROVIDERS: PCP Family Medicine; Referring Provider Internal Medicine Cardiovascular Disease; Visit Provider Internal Medicine Cardiovascular Disease
DX: R94.39 Abnormal result of other cardiovascular function study (principal); R06.00 Dyspnea, unspecified; R00.2 Palpitations; R53.83 Other fatigue
CPT/HCPCS: 36415; 71046; 80048; 85025

== ENCOUNTER → 2022-03-02 | Day surgery (SDC) | payer MEDICARE, SELFPAY ==
[2022-02-27 09:59] VITALS: BMI 24.9
--- NOTE | 2022-03-02 09:25 | CL.D_ITS ---
Patient Name: MATT TORRES Study Date: 03/02/2022 Performing: Naif Kapoor MD Ht: 63.38 inches 161 cm : 1955 Wt: 143.3 lbs 65 kg Age: 66 Gender: female BSA: 1.69 PROCEDURE(S) PERFORMED DC01-(71617)LHC/COR/LV CLINICAL PROFILE AND INDICATIONS Indications: Suspected CAD Heart Failure: None Stress/Imaging Standard Exercise Stress Test: Yes Result: Positive Intermediate Risk CAD Presentations: Stable angina. CONCLUSIONS Normal coronary arteries Normal LV size, wall motion,and systolic function Left Ventricular Hypertrophy - Moderate RECOMMENDATIONS Medical therapy DESCRIPTION OF PROCEDURE The patient arrived to the procedure lab. The risks and benefits of the procedure as well as a full d escription of our services here and current unavailability of surgical backup were fully explained to the patient and/or their significant other prior to the catheterization. The Timeout was completed, verifying the correct patient and procedure. The patient's procedural site was prepped and draped in the usual fashion. Local anesthetic was given subcutaneously to right radial region with Lidocaine 2% . Using a modified Seldinger technique, arterial access was obtained via the right radial artery, a 6 Fr sheath was inserted. Right Coronary Artery selective angiography was then performed in multiple v iews using a 5 Fr. 4.0 Bourg catheter. Left Coronary Artery selective angiography was performed in mu ltiple views using a 5 Fr. 4.0 Bourg catheter. Left Ventriculography was performed in CEVALLOS projection using a 5 Fr. Pigtail catheter. LV to AO pullback pressures were then recorded.The arterial sheath was pulled and a TR Band was applied for hemostasis CORONARY ANGIOGRAPHY DOMINANCE: Right Dominant LEFT HEART ASSESSMENT Left Ventricular Ejection Fraction: by LV Gram 70 % Normal LV wall motion Normal Left Ventricular systolic function Normal Left Ventricular systolic function LEFT MAIN: Angiographically normal LEFT ANTERIOR DESCENDING ARTERY: Angiographically normal CIRCUMFLEX ARTERY: Angiographically normal RIGHT CORONARY ARTERY: Angiographically normal COMPLICATIONS No Complications PROCEDURE MEDICATIONS Fentanyl 50 mcg IV Versed 1 mg IV Versed 1 mg IV Oxygen: 2 L/min via nasal cannula Heparin given IA 03/02/2022 09:08:40 Verapamil 2.5mg, Ntg 100mcgs, 3000 units of Heparin given IA 03/02/2022 09:08:40 SUMMARY OF HEMODYNAMIC DATA Time AIR REST ECG 08:03:25 Art 176/78 (114) 08:52:30 AO 127/73 (96) SA 09:10:33 LV 128/6, 13 09:16:18 LV 135/3, 13 09:16:24 LV 120/30, 32 09:16:47 LV 128/29, 31 09:16:53 LVp 111/22, 23 09:16:58 AOp 118/72 (98) 09:17:03 Signed By Naif Kapoor MD On 03/02/2022 09:24:57 Naif Kapoor MD
== END | disposition home or self-care (01) ==
PROVIDERS: PCP Family Medicine; Referring Provider Internal Medicine Cardiovascular Disease; Visit Provider Internal Medicine Cardiovascular Disease
DX: R07.9 Chest pain, unspecified (principal); R06.02 Shortness of breath; I10 Essential (primary) hypertension; E03.9 Hypothyroidism, unspecified; E78.5 Hyperlipidemia, unspecified; Z82.49 Family history of ischemic heart disease and other diseases of the circulatory system; Z87.891 Personal history of nicotine dependence; R94.31 Abnormal electrocardiogram [ECG] [EKG]; R94.39 Abnormal result of other cardiovascular function study
CPT/HCPCS: 93458; 99152; 99153; J7040; C1769; C1894; Q9967

== ENCOUNTER → 2022-06-24 | Outpatient (CLI) | payer MEDICARE, SELFPAY ==
--- NOTE | 2022-06-24 13:06 | ECHOD_ITS ---
Reason For Study: DYSPNEA Procedure This was a 2D Doppler, Color Flow transthoracic echocardiogram. Exam performed in department. Left Ventricle Normal LV size. Left ventricular systolic function is normal. The estimated ejection fraction is 60 %. Stage 2 diastolic dysfunction. No regional wall motion abnormalities noted. Right Ventricle Normal RV size. Normal systolic function. Atria Normal left atrium. Normal right atrium. Mitral Valve Normal mitral valve. Tricuspid Valve Normal tricuspid valve. Mild tricuspid valve insufficiency. Pulmonary artery systolic pressure is 24 mmHg. Aortic Valve Normal aortic valve. Trisinus/trileaflet aortic valve. Pulmonic Valve Normal pulmonic valve. Great Vessels Normal aortic root. The pulmonary artery is normal size. Normal inferior vena cava. Pericardium/Pleural No pericardial effusion. MMode/2D Measurements & Calculations LVIDd: 4.6 cm IVSd: 1.0 cm Ao root diam: 3.2 cm LVIDs: 2.2 cm LVPWd: 1.2 cm RVDd: 3.1 cm FS: 51.9 % LAV(MOD-bp): 44.4 ml LVAd ap4: 23.5 cm2 LVAd ap2: 22.1 cm2 LAV(MOD-bp) Indexed: 26.4 ml/m2 LVLd ap4: 7.8 cm LVLd ap2: 7.1 cm LAV(MOD-sp2): 42.3 ml EDV(MOD-sp4): 61.6 ml EDV(MOD-sp2): 58.3 ml LAV(MOD-sp4): 43.1 ml EDV(sp4-el): 60.3 ml EDV(sp2-el): 58.7 ml LVAs ap4: 11.1 cm2 LVAs ap2: 9.2 cm2 LVLs ap4: 5.8 cm LVLs ap2: 4.7 cm ESV(MOD-sp4): 19.8 ml ESV(MOD-sp2): 15.4 ml ESV(sp4-el): 17.9 ml ESV(sp2-el): 15.3 ml EF(MOD-sp4): 67.9 % EF(MOD-sp2): 73.5 % EF(sp4-el): 70.4 % SV(MOD-sp4): 41.8 ml SV(MOD-sp2): 42.8 ml SV(sp4-el): 42.4 ml LA dimension(2D): 3.3 cm LA A4 area: 16.1 cm2 RA A4 area: 14.1 cm2 Time Measurements MV dec time: 0.18 sec Doppler Measurements & Calculations MV E max brooks: 95.1 cm/sec Lat Peak E' Brooks: 11.1 cm/sec Med Peak E' Brooks: 7.4 cm/sec MV A max brooks: 76.8 cm/sec E/E' lat: 8.5 E/E' med: 12.8 MV E/A: 1.2 MV V2 max: 93.7 cm/sec MV dec slope: 524.2 cm/sec2 Ao V2 max: 120.9 cm/sec MV max P.5 mmHg Ao max P.8 mmHg MV V2 mean: 40.9 cm/sec Ao V2 mean: 84.4 cm/sec MV mean P.87 mmHg Ao mean P.3 mmHg MV V2 VTI: 30.1 cm Ao V2 VTI: 31.9 cm AV (velocity ratio): 0.88 LV V1 max: 114.7 cm/sec MR max brooks: 388.6 cm/sec PA V2 max: 80.6 cm/sec LV V1 max P.3 mmHg MR max P.4 mmHg PA V2 mean: 55.5 cm/sec LV V1 mean P.7 mmHg LV V1 mean: 75.5 cm/sec LV V1 VTI: 28.0 cm TR max brooks: 229.3 cm/sec TR max P.0 mmHg ECHO/Echo Complete Interpretation Summary Normal LV size. Left ventricular systolic function is normal. The estimated ejection fraction is 60 %. Stage 2 diastolic dysfunction. Structurally normal valves. Ordering Physician: Susan Samuel Referring Physician: Susan Samuel Performed By: Idalia Trejo RCS
== END | disposition home or self-care (01) ==
LOC: CVS 13:05
PROVIDERS: PCP Family Medicine; Referring Provider Physician Assistant Medical; Visit Provider Physician Assistant Medical
DX: R07.9 Chest pain, unspecified (principal); R06.00 Dyspnea, unspecified; R06.02 Shortness of breath
CPT/HCPCS: 93306

== ENCOUNTER → 2023-02-23 | Outpatient (CLI) | payer MEDICARE, SELFPAY ==
--- NOTE | 2023-02-23 13:57 | BD_ITS ---
STUDY: DUAL ENERGY X-RAY ABSORPTIOMETRY / DXA REASON FOR EXAM: Female, 67 years old. [id number] TECHNIQUE: Bone Mineral Density (BMD) measurements of lumbar spine and bilateral hips were obtained. COMPARISON: None. FINDINGS: Lumbar Spine (L1-L4): g/cm2 (1.184) / T-score (0.8) / Z-score (2.9) Findings are suggestive of normal bone density with a low fracture risk. Left Femur Total: g/cm2 (0.963) / T-score (0.2) / Z-score (1.6) Left Femoral Neck: g/cm2 (0.879) / T-score (0.3) / Z-score (2.0) Right Femur Total: g/cm2 (0.907) / T-score (-0.3) / Z-score (1.2) Right Femoral Neck: g/cm2 (0.862) / T-score (0.1) / Z-score (1.9) BD/Dexa Bone Density Study IMPRESSION: The patient is considered normal as outlined below according to World Roamin Organization (WHO) criteria with a low fracture risk. Reference Information: The T-score is the number of standard deviations above or below the standard which is normal for young adults at their peak bone mineral density. The World Health Organization (WHO) interprets the T-scores as follows: Above -1 Normal bone density Between -1 and -2.5 Osteopenia Equal to / or below -2.5 Osteoporosis As a practical clinical guideline, osteopenia may be graded as follows: Mild -1 through -1.5 Moderate -1.6 through -2.0 Severe -2.1 through -2.4 The Z-score is the number of standard deviations above or below age-matched controls. A Z-score of less than -1.5 would be considered abnormal. References: 1. NIH Osteoporosis and Related Bone Diseases www osteo.org 2. International Society for Clinical Densitometry www iscd.org 3. National Osteoporosis Foundation www nof.org Electronically Signed: Jemal Pack MD at 14:07 EDT ,
== END | disposition home or self-care (01) ==
LOC: OPBD 13:50
PROVIDERS: PCP Family Medicine; Referring Provider Family Medicine; Visit Provider Family Medicine
DX: Z00.00 Encounter for general adult medical examination without abnormal findings (principal); Z78.0 Asymptomatic menopausal state; E03.9 Hypothyroidism, unspecified
CPT/HCPCS: 77080

== ENCOUNTER → 2023-06-22 | Outpatient (CLI) | payer MEDICARE, SELFPAY ==
[2023-06-22 18:05] LABS: Anion Gap 2 (5-15); BUN 18 mg/dL (7-18); BUN/Creat Ratio 22.3 RATIO (10-20); Calcium,Total 9.4 mg/dL (8.5-10.1); Chloride 103 mmol/L (98-107); Creatinine, Serum 0.81 mg/dL (0.55-1.02); EST Glomerular Filtration Rate 75 mL/min (>60); Est Glom Filt Rate - Afr Amer 91 mL/min (>60); Glucose 91 mg/dL (74-106); Potassium 4.1 mmol/L (3.5-5.1); Sodium Level 138 mmol/L (136-145)
== END | disposition home or self-care (01) ==
LOC: MTLAB 14:41
PROVIDERS: PCP Family Medicine; Referring Provider Family Medicine; Visit Provider Family Medicine
DX: I10 Essential (primary) hypertension (principal)
CPT/HCPCS: 36415; 80048